=== PATIENT | male | born 1950 | race Caucasian/White ===

== ENCOUNTER 2017-02-11 10:56 | Inpatient (IN) | payer OTHER, MEDICARE ==
--- NOTE | ~2017-02-11 | DS ---
Discharge Summary [facility] [address] [place]. [address] NAME: MARIBELL CHOWDHURY : 49 STATUS : DIS IN PAT#: [id number] AGE: 66 ADM/REG DATE : 02/11/17 MR#: [id number] REPORT SERV DATE: 02/14/17 DICTATED BY: KAITLIN GARCIA II DATE: 02/13/17 REPORT STATUS : Draft TRANSCRIBED BY: MODL DATE: 02/13/17 ADMISSION DATE: 02/11/2017 DISCHARGE DATE: 02/13/2017 DISCHARGE DIAGNOSES: 1. Metastatic esophageal cancer. 2. Dysphagia with esophageal stricture and recurrence of esophageal tumor, status post dilatation. 3. Chronic anemia. 4. Hypertension. 5. Diabetes mellitus type 2. CONSULTS: Dr. August with GI and Dr. Decker of [facility]. PROCEDURES: EGD with food bolus removal. Biopsy and balloon dilatation of esophagogastric anastomosis. BRIEF HISTORY OF PRESENT ILLNESS: The patient is a 66-year-old male with the above history, who presented to [facility] due to progressive dysphagia to both liquids and solids. For detailed history and physical examination, please see Dr. Garber's note from 02/11/2017. HOSPITAL COURSE: After admission, GI was consulted and subsequently underwent the aforementioned upper GI endoscopy. There was a normal-appearing duodenum, Billroth I versus pyloroplasty in abdomen. Normal-appearing stomach. The esophagogastric anastomosis noted 22 cm, nodular in appearance on the distal and was subsequently biopsied, questionable recurrence of esophageal adenocarcinoma. The anastomosis was dilated to 10 mm as above with excellent results. Food bolus was removed. GI recommended Protonix and advanced his diet, which he has since tolerated and feels much better. Dr. Decker is recommending placement of G-tube in about one to two weeks prior to any further surgery. At this point, the patient is tolerating a diet and otherwise stable. His hemoglobins have been stable to low around 7-8. No other acute issues. DISCHARGE MEDICATIONS: 1. Carafate 1 g p.o. a.c. and h.s. 2. Ferrous sulfate 325 mg p.o. b.i.d. 3. Effexor 75 mg p.o. daily. 4. Magnesium oxide 400 mg p.o. daily. 5. Neurontin 300 mg p.o. b.i.d. 6. Simvastatin 40 mg p.o. q.h.s. 7. Protonix 40 mg p.o. daily. DISCHARGE INSTRUCTIONS: The patient will follow with Dr. Decker on 02/17/2017. DICTATED BY: Kaitlin Garcia II, MD Discharge Summary [address] [address] NAME: MARIBELL CHOWDHURY : 49 STATUS : DIS IN PAT#: [id number] AGE: 66 ADM/REG DATE : 02/11/17 MR#: [id number] REPORT SERV DATE: 02/14/17 DICTATED BY: KAITLIN GARCIA II DATE: 02/13/17 REPORT STATUS : Draft TRANSCRIBED BY: CONRADO DATE: 02/13/17 EM/CONRADO Kaitlin Garcia II, MD / [id number] CC: MD EULA Yang II, PAUL DANIEL
--- NOTE | ~2017-02-11 | HP ---
History And Physical [facility] [address] [place]. [address] NAME: MARIBELL CHOWDHURY : 49 STATUS : ADM IN [facility]#: [id number] AGE: 66 ADM/REG DATE : 02/11/17 MR#: [id number] REPORT SERV DATE: 02/11/17 DICTATED BY: CARMENCITA POST DATE: 02/11/17 REPORT STATUS : Draft TRANSCRIBED BY: MODL DATE: 02/11/17 DATE OF ADMISSION: 02/11/2017 CHIEF COMPLAINT: Progressive dysphagia with inability to swallow since yesterday morning. HISTORY OF PRESENT ILLNESS: This is a very pleasant 66-year-old gentleman. He did have a history of esophageal cancer diagnosed in 2015. He underwent a transhiatal esophagectomy with an esophagogastrostomy in 2015, and after that, underwent chemo and radiation treatment under Dr. Burke Decker's care. He finished chemo about two weeks ago. He has been seen by Dr. Dyer of GI in [place] who on 12/13/2016 performed an EGD. At that time, it had been seen that his cancer came back and he has been metastasizing into his lymph node. 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 He did have intermittent dysphagia since, in fact, he had the esophageal cancer surgery. He used to have a PEG tube. His PEG tube came out sometimes last year and actually it has never been placed back. He has been left to eat, though his dysphagia became progressively worse. On 12/13/2016, when he had the EGD, it has been found that the cancer came back as well as he had a food bolus. After that, he has been advised to take soft diet and only liquids, and he has been having intermittent dysphagia since then. However, since yesterday, the patient has not been able to swallow anything. He felt everything he was eating or medications were coming back up. As a result, he has presented today to [facility]. Also important to note, the patient had a CT scan performed by [facility] on Monday, but he does not know the results of the CT scan, and he will have a followup appointment with Dr. Decker on Monday. Due to the complaints of inability to swallow, he has been presenting today to [facility]. He has not experienced any chest pain or increasing shortness of breath. No fever. No cough. No sputum production. No hematemesis or melena. No hematochezia. No abdominal pain. No other complaints. The patient has been evaluated in the emergency room and the hospitalist service has been asked for admission, further evaluation, and treatment. PAST MEDICAL HISTORY: Significant for carcinoma of the distal esophagus at the gastroesophageal junction, status post surgery, chemo, and radiation treatment; last chemo was on 01/30/2017. Also history of hypertension, diabetes type 2, noninsulin dependent, GERD, anxiety disorder, and hyperlipidemia. PAST SURGICAL HISTORY: Includes transhiatal esophagectomy with an esophagogastrostomy and PEG tube in 2016. SOCIAL HISTORY: Denies tobacco, alcohol, or IV drugs. ALLERGIES: HE DOES NOT HAVE ANY DRUG ALLERGIES. FAMILY HISTORY: Significant for congestive heart failure and cancer. MEDICATIONS: At home include iron sulfate, Neurontin, mag oxide, Glucophage, Prilosec, Zocor, Carafate, and Effexor. REVIEW OF SYSTEMS: History And Physical [address] [address] NAME: MARIBELL CHOWDHURY : 49 STATUS : ADM IN [facility]#: [id number] AGE: 66 ADM/REG DATE : 02/11/17 MR#: [id number] REPORT SERV DATE: 02/11/17 DICTATED BY: CARMENCITA POST DATE: 02/11/17 REPORT STATUS : Draft TRANSCRIBED BY: CONRADO DATE: 02/11/17 A 14-point review of systems has been obtained and pertinent positives have been listed into the history of present illness. Otherwise, negative except those underlying above. PHYSICAL EXAMINATION: VITAL SIGNS: The patient currently is afebrile. Blood pressure 162/74, heart rate 96, respiratory rate 18, saturating 98% in room air. GENERAL: He is a very pleasant, well-developed, well-nourished gentleman, in no acute distress. He is alert and oriented x3. He is nonfocal. He follows all his commands appropriately. HEENT: Shows pupils equal, round, reactive to light. Extraocular movements intact. No JVD. No lymphadenopathy. No thyromegaly appreciated. CHEST: Eval shows bilateral air entry. Clear anteroposterior. No wheezes, crackles, or rhonchi appreciated. CARDIOVASCULAR: He is regular rate and rhythm. S1, S2 positive. No S3, no S4. No murmurs, rubs, or gallops appreciated. ABDOMEN: Soft with positive bowel sounds. Nontender. No guarding. No rebound. EXTREMITIES: No clubbing, cyanosis, or edema. NEUROLOGIC: He is alert and oriented x3. He is nonfocal. He follows all his commands appropriately. LABORATORY DATA: Labs from today include sodium 139, potassium 5.1, chloride 106, CO2 of 26, BUN 20, creatinine 0.92, glucose is 111. His liver function test shows total bilirubin 0.3, alkaline phosphatase 91, ALT 14, AST 18. White count 3.1, hemoglobin 8.7, hematocrit 29.1, platelets are 246. His chest x-ray, portable, that has been performed in the emergency room has shown that the patient does not have any acute cardiopulmonary abnormality that could be identified. ASSESSMENT: This is a very pleasant 66-year-old gentleman with progressive dysphagia, recurrent esophageal cancer, metastatic, and inability to eat. 1. Inability to eat. 2. Recurrent esophageal cancer with metastatic disease. 3. Dehydration. 4. Hypertension. 5. Diabetes type 2, noninsulin dependent. 6. History of gastroesophageal reflux disease. 7. History of anemia. PLAN: 1. We are going to admit the patient to hospitalist service. We will keep him n.p.o., vigorous IV hydration. PPI IV b.i.d. We are going to consult Dr. Amauri Gonzalez with whom I talked personally for evaluating the patient and EGD. Provide supportive care as well. 2. Diabetes type 2, noninsulin dependent. While the patient is n.p.o., we are going to perform Accu-Cheks q.6 hours and sliding scale insulin subcutaneously level 1. 3. History of hypertension. We are going to provide p.r.n. hydralazine as needed. 4. Anemia. We are going to check the patient's anemia studies and check vitamin B12 and History And Physical [address] [address] NAME: MARIBELL CHOWDHURY : 49 STATUS : ADM IN [facility]#: [id number] AGE: 66 ADM/REG DATE : 02/11/17 MR#: [id number] REPORT SERV DATE: 02/11/17 DICTATED BY: CARMENCITA POST DATE: 02/11/17 REPORT STATUS : Draft TRANSCRIBED BY: CONRADO DATE: 02/11/17 folic acid. We are going to provide reasonable pain and nausea control as well as GI and DVT prophylaxis with SCDs. That has been discussed extensively with the patient as well as the patient's . All the questions have been answered in full. I have discussed with the patient the patient's medical conditions as well as our therapeutical goals. I have also discussed the patient's wishes in case his condition deteriorates, and he says that he does not want any aggressive measures such as intubation, chest compression, no mechanical ventilation, no defibrillation, cardioversion, or medications to treat life-threatening arrhythmia or hemodynamic deterioration according to the patient's prior wishes well stated. We will honor the patient's and family's wishes and make him [id number]. Further workup and recommendation pending above. Also, I would like to note that the patient is going to be followed by Dr. Sukhdev Horn. KIMBERLY/CONRADO Carmencita Post M.D. / [id number] CC: MD Micha Yang II
--- NOTE | ~2017-02-11 | CN ---
Consultation Report [facility] [address] [place]. [address] NAME: MARIBELL CHOWDHURY : 49 STATUS : ADM IN [facility]#: [id number] AGE: 66 ADM/REG DATE : 02/11/17 MR#: [id number] REPORT SERV DATE: 02/11/17 DICTATED BY: JAYCE AUGUST DATE: 02/11/17 REPORT STATUS : Draft TRANSCRIBED BY: MODL DATE: 02/11/17 GI CONSULT REGARDING DYSPHAGIA. DATE OF CONSULTATION: 02/11/2017 HISTORY OF PRESENT ILLNESS: This is a 66-year-old man, diagnosed with esophageal cancer in 10/2015, who now presents with progressive dysphagia over the past few months. He has had difficulties with liquids and solids. No chest pain or abdominal pain. No diarrhea, constipation, melena, or hematochezia. He does have chronic GERD symptoms, which are decently controlled. ALLERGIES: NONE. MEDICATIONS: Iron, Neurontin, magnesium oxide, Glucophage, Prilosec 40 mg daily, Zocor, Carafate, and Effexor. FAMILY HISTORY: Negative for GI malignancy. SOCIAL HISTORY: He does not use alcohol or tobacco significantly. REVIEW OF SYSTEMS: A complete review of systems was obtained and negative except that noted in the history of present illness. MEDICAL HISTORY: Remarkable for: 1. Esophageal adenocarcinoma, status post transhiatal esophagectomy with esophagogastrostomy, 01/2016, Dr. Salmeron. The patient subsequently received chemotherapy and radiation, and has had recent recurrence, now on chemotherapy. He had EGD done in 12/2016 in [place]. He states he was dilated at that time, but there was recurrence of tumor at the anastomosis. 2. Diabetes. 3. GERD. 4. Hyperlipidemia. PHYSICAL EXAMINATION: VITAL SIGNS: Pulse is 96, blood pressure 162/74, his temperature 97.9, respirations 18, HEENT: Sclerae anicteric. NECK: Supple without lymphadenopathy. Pharynx is pink without exudate. LUNGS: Clear to auscultation bilaterally. HEART: Regular rate and rhythm. S1, S2 heard without rubs or gallops. ABDOMEN: Normal bowel sounds. Belly is soft, nontender, nondistended without hepatosplenomegaly. EXTREMITIES: No pedal edema or rash. NEUROLOGIC: Alert and oriented without focal deficit. Muscle exam is nontender. Consultation Report [facility] [address] [address] NAME: MARIBELL CHOWDHURY : 49 STATUS : ADM IN PAT#: [id number] AGE: 66 ADM/REG DATE : 02/11/17 MR#: [id number] REPORT SERV DATE: 02/11/17 DICTATED BY: JAYCE AUGUST DATE: 02/11/17 REPORT STATUS : Draft TRANSCRIBED BY: MODL DATE: 02/11/17 DATA: White blood cell count 3.1, hematocrit 29.1, MCV 72, platelets 246. His BUN is 20 and creatinine 0.92. Liver tests are normal. IMPRESSION: Dysphagia in the setting of progressive esophageal adenocarcinoma despite chemotherapy and radiation as well as surgery. RECOMMENDATIONS: 1. Bed at 45 degrees tonight. 2. Protonix. 3. EGD in the morning. He does not appear to have a connie impaction, as he is tolerating his saliva. Dysphagia has been progressive over a few months. CC/CONRADO Jayce August M.D. / [id number] CC: MD JOYCE Yang II, MD
--- NOTE | ~2017-02-11 | OP ---
Record Of Operation [facility] [address] [place]. [address] NAME: MARIBELL CHOWDHURY : 49 STATUS : ADM IN PAT#: [id number] AGE: 66 ADM/REG DATE : 02/11/17 MR#: [id number] REPORT SERV DATE: 02/13/17 DICTATED BY: JAYCE AUGUST DATE: 02/12/17 REPORT STATUS : Draft TRANSCRIBED BY: MODL DATE: 02/12/17 DATE OF PROCEDURE: 02/12/2017 PROCEDURE: Esophagogastroduodenoscopy with food bolus removal, biopsy, balloon dilation of esophagogastric anastomosis. MEDICATIONS: As per Anesthesia. The patient was intubated prior to the examination for airway protection. CONSENT: Informed consent was obtained from the patient by me prior to the procedure. Risks, benefits, and alternatives were discussed including the risk of bleeding, perforation, infection, reaction to medicine, missed lesion, and cardiopulmonary complications. DESCRIPTION OF PROCEDURE: After the patient was adequately sedated, intubated, placed in his left lateral decubitus position, the gastroscope was passed into the mouth and advanced under direct visualization to the proximal esophagus at which point, there was a food bolus noted, it was removed with a Wall Net. There was a tight stricture at 22 cm. The standard gastroscope would not pass. It was therefore exchanged for a small pediatric endoscope, which would also not pass, biopsies were obtained from the anastomosis which appeared nodular. The standard gastroscope was then placed back for a balloon dilation of the esophagogastric anastomosis. It was dilated from 6 to 10 mm with excellent results. The pediatric endoscope was then placed back into the mouth and advanced under direct visualization across the stricture without difficulty. The endoscope was maneuvered into the duodenum. It was then withdrawn with careful examination of mucosa throughout the duodenum, entire stomach, and esophagus. Of note, during balloon dilation the distal stomach was visualized, so that I was very confident that the tip of the catheter was entering the stomach during the balloon dilation. The patient tolerated the procedure well. FINDINGS: 1. Normal-appearing duodenum, Billroth I versus pyloroplasty in abdomen. 2. Normal-appearing stomach. 3. Esophagogastric anastomosis noted at 22 cm. Nodular in appearance on the distal and biopsied, question recurrence of esophageal adenocarcinoma. Dilated to 10 mm as above, with excellent results. 4. Food bolus removal. RECOMMENDATIONS: 1. Continue Protonix. 2. Start liquid diet and advance to soft as tolerated. 3. If disease continues to per progress may need to consider PEG tube placement, discussed with the patient. CC/MODL Record Of Operation [facility] [address]. [address] NAME: MARIBELL CHOWDHURY : 48 STATUS : ADM IN PAT#: [id number] AGE: 66 ADM/REG DATE : 02/11/17 MR#: [id number] REPORT SERV DATE: 02/13/17 DICTATED BY: JAYCE AUGUST DATE: 02/12/17 REPORT STATUS : Draft TRANSCRIBED BY: MODL DATE: 02/12/17 Jayce August M.D. / [id number] CC: MD EULA Yang II, PAUL DANIEL Gregory Olds, MD Gregory R. Sutton, MD GEORGE SAMUEL, MD
--- NOTE | ~2017-02-11 | HP ---
History And Physical [place] [address] [facility] [address] [place] [address] NAME: MARIBELL CHOWDHURY : 49 STATUS : ADM IN [facility]#: [id number] AGE: 66 ADM/REG DATE : 02/11/17 MR#: [id number] REPORT SERV DATE: 02/11/17 DICTATED BY: CARMENCITA POST DATE: 02/11/17 REPORT STATUS : Draft TRANSCRIBED BY: MODL DATE: 02/11/17 DATE OF ADMISSION: 02/11/2017 ADDENDUM: After discussing again with the patient and , the patient has decided to change his code status. He would like to be a full code and everything to be done for him. We will honor the patient and wishes and make him full code. CF/CONRADO Carmencita Post M.D. / [id number] CC: MD Micha Yang II
[~2017-02-11 10:56] MED LIST: ACET500CAP PO; ASAB PO; EFFEXXR75 PO; FARXIGA10 PO; GLUCOPHAGE1000 MG PO; GLUCOTRO10 PO; HYZAAR 100/25 T1 TAB PO; JANUVIA100 MG PO; MAGOX4 PO; PCET PO; PRILO PO; SENOKOTSYR PO; SUCR PO; ZOCOR40 PO; ZOVIRAX400 MG PO
[2017-02-11] MEDS ORDERED: FERROUS SULF325 M1 PO (11:20)
[2017-02-11] MEDS ORDERED: SUCR PO (11:20)
[2017-02-11] MEDS ORDERED: EFFEXXR75 PO (11:20)
[2017-02-11] MEDS ORDERED: PRILOSEC40 MG PO (11:20)
[2017-02-11] MEDS ORDERED: MAGOX4 PO (11:20)
[2017-02-11] MEDS ORDERED: NEUR300 PO (11:21)
[2017-02-11] MEDS ORDERED: ZOCOR40 PO (11:21)
[2017-02-11] MEDS ORDERED: GLUCPH PO (11:22)
[2017-02-11 12:06] LABS: BASOPHILS 1.3 %; BASOPHILS ABSOLUTE 0.04 10/3/uL (0.0-0.16); EOSINOPHILS ABSOLUTE 0.03 10/3/uL (0.0-0.53); ER CBC TAT 0 Hrs 07 Mins; HEMATOCRIT 29.1 % (40.0-51.0); HEMOGLOBIN 8.7 g/dL (13.6-17.8); LYMPHOCYTES 20.5 %; LYMPHOCYTES ABSOLUTE 0.63 10/3/uL (0.67-4.30); MEAN PLATELET VOLUME 8.6 fL (9.2-13.0); MONOCYTES 22.5 %; MONOCYTES ABSOLUTE 0.69 10/3/uL (0.21-1.20); NEUTROPHILS 54.7 %; NEUTROPHILS ABSOLUTE 1.68 10/3/uL (2.02-8.40); PLATELET COUNT 246 10/3/uL (150-400); RED CELL COUNT 4.04 10/6/uL (4.7-6.1); WHITE BLOOD CELLS 3.1 10/3/uL (4.5-10.5)
[2017-02-11 12:07] LABS: MANUAL DIFF NO %; MEAN CORPUS HGB CONC 29.9 g/dL (32.0-36.0); MEAN CORPUSCULAR HEMOGLOB 21.5 pg (26.0-34.0); RBC DISTRIBUTION WIDTH 22.8 % (12.0-16.0)
[2017-02-11 12:23] LABS: CALCIUM, SERUM 8.9 MG/DL (8.5-10.4); CHLORIDE, SERUM 106 MMOL/L (96-112); CO2 (CARBON DIOXIDE) 26 MMOL/L (24-34); CREATININE 0.92 MG/DL (0.70-1.30); GFR AFRICAN AMERICAN 99 ML/MIN (>=60); GFR NON AFRICAN AMERICAN 86 ML/MIN (>=60); POTASSIUM, SERUM 5.1 MMOL/L (3.5-5.3); SGOT(AST) 18 U/L (5-40); SGPT(ALT) 14 U/L (5-65); SODIUM, SERUM 139 MMOL/L (135-148); TOTAL PROTEIN 7.1 G/DL (6.0-8.5)
[2017-02-11 12:24] LABS: A/G RATIO 0.7 (0.7-1.9); ALKALINE PHOSPHATASE 91 U/L (45-117); BUN (BLOOD UREA NITROGEN) 20 MG/DL (6-23); GLOBULIN 4.1 G/DL (2.5-4.1); GLUCOSE, SERUM 111 MG/DL (60-99); TOTAL BILIRUBIN 0.3 MG/DL (0-1.2)
[2017-02-11 12:31] LABS: BAND NEUTROPHILS 1 %; BASOPHILS 2 %; BASOPHILS ABSOLUTE (CALC) 0.06 10/3/uL (0.0-0.16); EOSINOPHILS 5 %; EOSINOPHILS ABSOLUTE (CALC) 0.16 10/3/uL (0.0-0.53); ER DIFF TAT 0 Hrs 32 Mins; LYMPHOCYTES 23 %; LYMPHOCYTES ABSOLUTE (CALC) 0.71 10/3/uL (0.67-4.30); MONOCYTES 21 %; MONOCYTES ABSOLUTE (CALC) 0.65 10/3/uL (0.21-1.20); NEUTROPHILS ABSOLUTE (CALC) 1.52 10/3/uL (2.02-8.40); SEGMENTED NEUTROPHIL (0) 48 %; TOTAL NUCLEATED CELLS 100
[2017-02-11 12:32] LABS: HELMET CELLS OCC (0-2/OIF); PLATELET ESTIMATE ADQ (ADEQUATE); POLYCHROMASIA 1+ (2-5/OIF) (0-1/OIF); TEARDROP SHAPED RBCS OCC (0-2/OIF)
[2017-02-11 12:33] LABS: TARGET CELLS OCC (1-2/OIF) (0-1/OIF)
[2017-02-11 16:34] LABS: INTERNATIONAL NORMAL RATI 1.2 UNITS (-); PROTIME (NOT ORD) 15.1 SEC (12.0-14.5)
[2017-02-11 16:35] LABS: PARTIAL THROMBO TIME 32.6 SEC (22.5-37.2)
[2017-02-11 17:07] LABS: FERRITIN 15 NG/ML (26-388); FREE T4 1.56 NG/DL (0.76-1.46); IRON BINDING CAPACITY 369 MCG/DL (250-450); IRON, SERUM 31 MCG/DL (35-150); PHOSPHORUS, SERUM 3.8 MG/DL (2.5-4.5)
[2017-02-11 20:01] LABS: ASCORBIC ACID (UR NOT ORDER) NEG (NEG); BILIRUBIN, URINE NEGATIVE (NEG); KETONE, URINE 80 MG/DL (NEG); LEUKOCYTE ESTERASE(NOT OR NEG (NEG); WBC (NOT ORDERED) (RFLEX) 2 (0-5)
[2017-02-12 05:59] LABS: A/G RATIO 0.7 (0.7-1.9); ALBUMIN 2.6 G/DL (3.5-5.0); ALKALINE PHOSPHATASE 81 U/L (45-117); BUN (BLOOD UREA NITROGEN) 18 MG/DL (6-23); CALCIUM, SERUM 8.4 MG/DL (8.5-10.4); CHLORIDE, SERUM 109 MMOL/L (96-112); CREATININE 0.87 MG/DL (0.70-1.30); GFR AFRICAN AMERICAN 104 ML/MIN (>=60); GFR NON AFRICAN AMERICAN 89 ML/MIN (>=60); GLOBULIN 3.8 G/DL (2.5-4.1); HEMATOCRIT 26.8 % (40.0-51.0); HEMOGLOBIN 8.1 g/dL (13.6-17.8); MEAN CORPUS HGB CONC 30.2 g/dL (32.0-36.0); MEAN CORPUSCULAR HEMOGLOB 21.8 pg (26.0-34.0); MEAN CORPUSCULAR VOLUME 72.2 fL (80-100); MEAN PLATELET VOLUME 8.8 fL (9.2-13.0); PLATELET COUNT 248 10/3/uL (150-400); POTASSIUM, SERUM 4.3 MMOL/L (3.5-5.3); RBC DISTRIBUTION WIDTH 22.9 % (12.0-16.0); RED CELL COUNT 3.71 10/6/uL (4.7-6.1); SGOT(AST) 16 U/L (5-40); SGPT(ALT) 11 U/L (5-65); SODIUM, SERUM 141 MMOL/L (135-148); TOTAL BILIRUBIN 0.3 MG/DL (0-1.2); TOTAL PROTEIN 6.4 G/DL (6.0-8.5); WHITE BLOOD CELLS 3.1 10/3/uL (4.5-10.5)
[2017-02-12 06:01] LABS: CO2 (CARBON DIOXIDE) 21 MMOL/L (24-34); GLUCOSE, SERUM 84 MG/DL (60-99)
[2017-02-12 06:02] LABS: MANUAL DIFF YES %
[2017-02-12 06:47] LABS: BAND NEUTROPHILS 4 %; BASOPHILS 1 %; BASOPHILS ABSOLUTE (CALC) 0.03 10/3/uL (0.0-0.16); ELLIPTOCYTES 1+ (3-10/OIF) (0-2/OIF); EOSINOPHILS 2 %; EOSINOPHILS ABSOLUTE (CALC) 0.06 10/3/uL (0.0-0.53); LYMPHOCYTES 21 %; LYMPHOCYTES ABSOLUTE (CALC) 0.65 10/3/uL (0.67-4.30); MONOCYTES 24 %; MONOCYTES ABSOLUTE (CALC) 0.74 10/3/uL (0.21-1.20); NEUTROPHILS ABSOLUTE (CALC) 1.61 10/3/uL (2.02-8.40); PLATELET ESTIMATE ADQ (ADEQUATE); POLYCHROMASIA 1+ (2-5/OIF) (0-1/OIF); SEGMENTED NEUTROPHIL (0) 48 %; TARGET CELLS OCC (1-2/OIF) (0-1/OIF); TEARDROP SHAPED RBCS OCC (0-2/OIF); TOTAL NUCLEATED CELLS 100
[2017-02-12 06:48] LABS: HELMET CELLS OCC (0-2/OIF); TOXIC GRANULATION SLT
[2017-02-13 04:18] LABS: HEMATOCRIT 25.1 % (40.0-51.0); HEMOGLOBIN 7.6 g/dL (13.6-17.8); MEAN CORPUS HGB CONC 30.3 g/dL (32.0-36.0); MEAN CORPUSCULAR HEMOGLOB 21.8 pg (26.0-34.0); MEAN CORPUSCULAR VOLUME 71.9 fL (80-100); MEAN PLATELET VOLUME 8.2 fL (9.2-13.0); PLATELET COUNT 204 10/3/uL (150-400); RED CELL COUNT 3.49 10/6/uL (4.7-6.1); WHITE BLOOD CELLS 2.5 10/3/uL (4.5-10.5)
[2017-02-13 04:19] LABS: MANUAL DIFF YES %
[2017-02-13 04:45] LABS: EOSINOPHILS 2 %; EOSINOPHILS ABSOLUTE (CALC) 0.05 10/3/uL (0.0-0.53); LYMPHOCYTES 23 %; LYMPHOCYTES ABSOLUTE (CALC) 0.58 10/3/uL (0.67-4.30); MONOCYTES 18 %; MONOCYTES ABSOLUTE (CALC) 0.45 10/3/uL (0.21-1.20); NEUTROPHILS ABSOLUTE (CALC) 1.43 10/3/uL (2.02-8.40); SEGMENTED NEUTROPHIL (0) 57 %; TOTAL NUCLEATED CELLS 100
[2017-02-13 04:46] LABS: ELLIPTOCYTES 1+ (3-10/OIF) (0-2/OIF); PLATELET ESTIMATE ADQ (ADEQUATE)
[2017-02-13 04:47] LABS: BURR CELLS 1+ (3-10/OIF) (0-2/OIF); TEARDROP SHAPED RBCS OCC (0-2/OIF)
[2017-02-13] MEDS ORDERED: PROTONIX PO (12:01)
[2017-02-21] MEDS ORDERED: V5 PO (16:51)
== END 2017-02-13 11:40 | disposition home or self-care (01) | DRG 376 ==
LOC: ER 10:56 → 4EA 13:13
PROVIDERS: Hospitalist; Internal Medicine
PROC: 0D748ZZ Dilation of Esophagogastric Junction, Via Natural or Artificial Opening Endoscopic (ICD-10-PCS; principal; 2017-02-11)
PROC: 0DB48ZX Excision of Esophagogastric Junction, Via Natural or Artificial Opening Endoscopic, Diagnostic (ICD-10-PCS; 2017-02-11)
PROC: 0DC48ZZ Extirpation of Matter from Esophagogastric Junction, Via Natural or Artificial Opening Endoscopic (ICD-10-PCS; 2017-02-11)
DX: C15.9 Malignant neoplasm of esophagus, unspecified (principal); K22.2 Esophageal obstruction; I10 Essential (primary) hypertension; E11.9 Type 2 diabetes mellitus without complications; D63.0 Anemia in neoplastic disease
CPT/HCPCS: 71010; 80053; 81001; 82607; 82728; 82962; 83036; 83540; 83550; 83615; 83735; 84100; 84439; 84443; 85025; 85610; 85730; 88305; 88360; 93005; 96374; 99285; A9270-GY; C1725; C1726; C9113; J0330; J0360; J2405; J3010; J3411

== ENCOUNTER 2017-02-23 12:39 | Observation (INO) | payer OTHER, MEDICARE ==
--- NOTE | ~2017-02-23 | HP ---
History And Physical [address] [address] NAME: MARIBELL CHOWDHURY : [birth year] STATUS : ADM IN [facility]#: [id number] AGE: 66 ADM/REG DATE : 02/23/17 MR#: [id number] REPORT SERV DATE: 02/23/17 DICTATED BY: MARIBELL SALMERON JR. DATE: 02/23/17 REPORT STATUS : Draft TRANSCRIBED BY: CONRADO DATE: 02/23/17 DATE OF ADMISSION: 02/23/2017 CHIEF COMPLAINT: Malnutrition, dysphagia, metastatic esophageal carcinoma. HISTORY: This is a now 66-year-old male. He has a history of carcinoma of the esophagus. He had initially undergone neoadjuvant chemoradiation therapy. He underwent resection and this had negative margins but then developed evidence for recurrent disease both locally and regionally and distantly. He has been receiving treatment. He has progressive dysphagia despite esophageal dilatation and J-tube placement is indicated for nutritional support. PAST MEDICAL HISTORY: Also remarkable for diabetes mellitus type 2, hypertension, and chronic anemia MEDICATIONS: Listed and reviewed. SURGICAL HISTORY: The surgical history is as above. FAMILY HISTORY: Noncontributory. SOCIAL HISTORY: Tobacco, none; alcohol, none. He is . REVIEW OF SYSTEMS: GENERAL: Otherwise noncontributory. Exam shows a chronically ill-appearing male. HEENT: Head and neck exam shows pupils are equal, round and reactive. No icteric changes. NECK: There is no palpable adenopathy. Neck incision is healed. RESPIRATORY: Lungs are clear bilaterally. CARDIOVASCULAR: Shows normal S1 and S2 without murmur. ABDOMEN: The abdomen shows a healed incision. Abdomen is soft, nontender. No mass. EXTREMITIES: Show no clubbing, cyanosis, or edema. NEUROLOGIC: Alert and oriented. No focal findings. Appropriate affect. He is cachectic. IMPRESSION: Malnutrition. Metastatic esophageal cancer. PLAN: We will proceed with J-tube placement for nutritional support. Details discussed with the patient. He understands and agrees. JHOANA/CONRADO Maribell Salmeron Jr., M.D. / [id number] History And Physical [address] [place] [facility] [place] [address] NAME: MARIBELL CHOWDHURY : [birth year] STATUS : ADM IN PAT#: [id number] AGE: 66 ADM/REG DATE : 02/23/17 MR#: [id number] REPORT SERV DATE: 02/23/17 DICTATED BY: MARIBELL SALMERON JR. DATE: 02/23/17 REPORT STATUS : Draft TRANSCRIBED BY: MODL DATE: 02/23/17 CC: Maribell Salmeron Jr., M.D.
--- NOTE | ~2017-02-23 | OP ---
Record Of Operation [facility] [address] [place]. [address] NAME: MARIBELL CHOWDHURY : 48 STATUS : ADM IN PAT#: [id number] AGE: 66 ADM/REG DATE : 02/23/17 MR#: [id number] REPORT SERV DATE: 02/23/17 DICTATED BY: MARIBELL WILSON JR. DATE: 02/23/17 REPORT STATUS : Draft TRANSCRIBED BY: CONRADO DATE: 02/23/17 DATE OF PROCEDURE: 02/23/2017 GO GO DANCER: Shruthi Ryan. PROCEDURE: Placement of jejunostomy tube via jejunotomy. PREOPERATIVE DIAGNOSIS: Esophageal carcinoma with malnutrition. POSTOPERATIVE DIAGNOSIS: Esophageal carcinoma with malnutrition. ANESTHESIA: General. INDICATIONS: The patient has history of esophageal carcinoma. He has been treated with chemotherapy, radiation therapy, and surgery. He has recurrent disease. Additional systemic treatment is planned and feeding tube placement is indicated for support with inability to aliment by mouth. FINDINGS: The patient had previous jejunostomy and this site was intact. This was reopened and a 14-Australian balloon catheter was successfully placed into the jejunal lumen. Other apparent findings were seen within limits and expiration. PROCEDURE IN DETAIL: With adequate general anesthesia, the patient was placed in supine position. The abdomen was prepped and draped sterilely. A small midline incision was made. The dissection was carried down sharply to the fascia. The peritoneum was divided and the peritoneal cavity was entered. Then, a 15 blade was utilized to make an incision at the healed jejunotomy site and with a Edi clamp, this was passed and the track open into the bowel lumen. Then the jejunostomy catheter was cut, it was placed into the bowel lumen, placing it distally. The balloon was inflated with 5 mL of sterile water and seated in place. This was carefully inspected. There was no evidence of any disruption and the catheter was irrigated with saline. There was no evidence of any leak. Then the midline incision was closed with a 0 PDS for the fascial layer, subcutaneous with Vicryl, and dermal Monocryl. The catheter was secured at the exit site with nylon for the collar. The patient left the operating room in satisfactory condition. ESTIMATED BLOOD LOSS: 10 mL. JHOANA/CONRADO Maribell Wilson Jr., M.D. / [id number] Record Of Operation [place] [address] [place]. [address] NAME: MARIBELL CHOWDHURY : 48 STATUS : ADM IN PAT#: [id number] AGE: 66 ADM/REG DATE : 02/23/17 MR#: [id number] REPORT SERV DATE: 02/23/17 DICTATED BY: MARIBELL WILSON JR. DATE: 02/23/17 REPORT STATUS : Draft TRANSCRIBED BY: CONRADO DATE: 02/23/17 CC: Maribell Wilson Jr., M.D.
[~2017-02-23 12:39] MED LIST changes: +FERROUS SULF325 M1 PO; +GLUCPH PO; +NEUR300 PO; +PRILOSEC40 MG PO; +PROTONIX PO; +V5 PO
[2017-02-24 07:14] LABS: BASOPHILS 0.2 %; BASOPHILS ABSOLUTE 0.01 10/3/uL (0.0-0.16); EOSINOPHILS 1.3 %; EOSINOPHILS ABSOLUTE 0.07 10/3/uL (0.0-0.53); HEMATOCRIT 27.5 % (40.0-51.0); HEMOGLOBIN 8.3 g/dL (13.6-17.8); IMMATURE GRANULOCYTES 0.2 %; IMMATURE GRANULOCYTES ABSOLUTE 0.01 10/3/uL (0.0-0.11); LYMPHOCYTES 9.8 %; LYMPHOCYTES ABSOLUTE 0.52 10/3/uL (0.67-4.30); MEAN CORPUS HGB CONC 30.2 g/dL (32.0-36.0); MEAN CORPUSCULAR HEMOGLOB 21.8 pg (26.0-34.0); MEAN CORPUSCULAR VOLUME 72.2 fL (80-100); MEAN PLATELET VOLUME 8.4 fL (9.2-13.0); MONOCYTES 16.5 %; MONOCYTES ABSOLUTE 0.87 10/3/uL (0.21-1.20); PLATELET COUNT 241 10/3/uL (150-400); RBC DISTRIBUTION WIDTH 23.2 % (12.0-16.0); RED CELL COUNT 3.81 10/6/uL (4.7-6.1)
[2017-02-24 07:16] LABS: MANUAL DIFF NO %; WHITE BLOOD CELLS 5.3 10/3/uL (4.5-10.5)
[2017-02-24 07:24] LABS: BUN (BLOOD UREA NITROGEN) 18 MG/DL (6-23)
[2017-02-24 07:25] LABS: ALBUMIN 1.9 G/DL (3.5-5.0); CO2 (CARBON DIOXIDE) 27 MMOL/L (24-34)
[2017-02-24 07:33] LABS: A/G RATIO 0.5 (0.7-1.9); ALKALINE PHOSPHATASE 71 U/L (45-117); CHLORIDE, SERUM 106 MMOL/L (96-112); CREATININE 1.05 MG/DL (0.70-1.30); GFR AFRICAN AMERICAN 85 ML/MIN (>=60); GFR NON AFRICAN AMERICAN 73 ML/MIN (>=60); GLOBULIN 3.9 G/DL (2.5-4.1); GLUCOSE, SERUM 161 MG/DL (60-99); POTASSIUM, SERUM 3.5 MMOL/L (3.5-5.3); PREALBUMIN 5.7 MG/DL (17.0-43.0); SGOT(AST) 14 U/L (5-40); SGPT(ALT) 8 U/L (5-65); SODIUM, SERUM 138 MMOL/L (135-148); TOTAL BILIRUBIN 0.2 MG/DL (0-1.2); TOTAL PROTEIN 5.8 G/DL (6.0-8.5)
[2017-02-24 07:34] LABS: PLATELET ESTIMATE ADQ (ADEQUATE)
[2017-02-24 07:35] LABS: POLYCHROMASIA 1+ (2-5/OIF) (0-1/OIF); SCHISTOCYTES OCC (0-2/OIF)
[2017-02-24 07:36] LABS: OVALOCYTES 1+ (3-10/OIF) (0-2/OIF); TOXIC GRANULATION 1+
[2017-02-24] MEDS ORDERED: HYCET 7.5 MG-3473 ML PO (17:09)
== END 2017-02-24 18:58 | disposition home health service (06) ==
LOC: SDC 12:39 → 5SO 17:05
PROVIDERS: Specialist
PROC: 0DHA3UZ Insertion of Feeding Device into Jejunum, Percutaneous Approach (ICD-10-PCS; principal; 2017-02-23 14:00)
DX: E40 Kwashiorkor (principal); C15.9 Malignant neoplasm of esophagus, unspecified; D64.9 Anemia, unspecified; I10 Essential (primary) hypertension; E11.40 Type 2 diabetes mellitus with diabetic neuropathy, unspecified; K21.9 Gastro-esophageal reflux disease without esophagitis; Z87.891 Personal history of nicotine dependence; Z98.890 Other specified postprocedural states; Z79.899 Other long term (current) drug therapy
CPT/HCPCS: 36415; 80053; 82962; 83735; 84134; 85025; 86850; 86900; 86901; 96374; 96375; 96376; G0378; J0330; J0690; J1170; J2250; J2405; J3010